=== PATIENT | male | born 1935 | race Caucasian/White ===

== ENCOUNTER 2023-11-01 21:54 | Inpatient (IN) | payer MEDICARE, OTHER ==
[~2023-11-01] VITALS: Ht 177.8 cm; Wt 63.5 kg
[2023-11-01 21:57] VITALS: O2SAT 97
[2023-11-01] MEDS ORDERED: CEFEPIME 2GM IN DEXT 5% 100ML IV ONE (22:30)
[2023-11-01] MEDS ORDERED: VANCOMYCIN 1G PREMIX 200 ML IV ONE (22:30)
[2023-11-02] VITALS (22 sets, daily range): BP systolic 64–155; BP diastolic 50–86; PULSE 70–109; RESP 0–24; TEMP 36.00288–36.55848; O2SAT 77–99
[2023-11-02] MEDS: CEFEPIME 2GM/100ML 100 ML IV NR (00:21)
[2023-11-02] MEDS: SODIUM CHLORIDE 0.9% 1,000 ML IV ONE (00:22)
[2023-11-02 00:28] LABS: BASOPHILS % 0.9 % (0.0-2.0); DIFFERENTIAL COMMENT 0; EOSINOPHILS % 0.9 % (0.0-5.0); HEMATOCRIT. 28.1 % (42.0-52.0); HEMOGLOBIN. 9.4 g/dL (14.0-18.0); LYMPHOCYTES % 15.2 % (20.0-50.0); MEAN CORPUSCULAR HEMOGLOBIN 33.8 pg (28.0-32.0); MEAN CORPUSCULAR HGB CONC 33.4 g/dL (31.0-37.0); MEAN CORPUSCULAR VOLUME 101.1 fL (80.0-94.0); MEAN PLATELET VOLUME 8.6 fl (7.4-10.4); MONOCYTES % 9.6 % (2.0-8.0); NEUTROPHILS % 73.4 % (40.0-76.0); PLATELET 229 x1000/uL (130-400); RED BLOOD CELL COUNT 2.78 mill/uL (4.7-6.1); RED CELL DISTRIBUTION WIDTH 15.1 % (11.6-14.6); WHITE BLOOD COUNT 5.4 x1000/uL (4.5-11.0)
[2023-11-02 00:36] LABS: CHLORIDE 103 mEq/L (98-107); POTASSIUM 5.4 mEq/L (3.5-5.1); SODIUM 135 mEq/L (136-145)
[2023-11-02 00:37] LABS: CARBON DIOXIDE 25 mEq/L (21-32)
[2023-11-02 00:39] LABS: INR 1.1; PROTHROMBIN TIME 12.4 sec (9.6-11.0)
[2023-11-02 00:42] LABS: CREATININE 1.6 mg/dL (0.6-1.3); GLUCOSE 155 mg/dL (70-105); UREA NITROGEN BLOOD 43 mg/dL (9-23)
[2023-11-02 00:44] LABS: ALANINE AMINOTRANSFERASE 28 IU/L (10-49); ALBUMIN 3.5 g/dL (3.2-4.8); ASPARTATE AMINOTRANSFERASE 49 IU/L (<34); BILIRUBIN DIRECT 0.3 mg/dL (<=3.0); BILIRUBIN TOTAL 0.5 mg/dL (0.1-1.0); LACTIC ACID 2.9 mmol/L (0.4-2.0); PROTEIN TOTAL 6.2 g/dL (6.0-8.3); TROPONIN I HIGH SENSITIVITY 37 ng/L (3.0-53)
[2023-11-02] MEDS: VANCOMYCIN 1G PREMIX 200 ML IV NR (01:37)
[2023-11-02 02:00] LABS: LACTIC ACID 2.8 mmol/L (0.4-2.0)
[2023-11-02 02:37] LABS: TROPONIN I HIGH SENSITIVITY 38 ng/L (3.0-53)
[2023-11-02] MEDS ORDERED: ACETAMINOPHEN 325MG TABLET PO PRN ×2 (11:45)
[2023-11-02] MEDS ORDERED: DOCUSATE SODIUM 100MG CAPSULE PO PRN (11:45)
[2023-11-02] MEDS ORDERED: ONDANSETRON HCL 4MG/2ML INJ IV PRN (11:45)
[2023-11-02] MEDS ORDERED: IPRATROPIUM/ALBUTEROL 0.5-3(2.5)MG/3ML NEB HHN PRN (11:45)
[2023-11-02] MEDS ORDERED: MAGNESIUM/ALUMINUM HYDROXIDE/SIMETHICONE 30ML UDC PO PRN (11:45)
[2023-11-02] MEDS ORDERED: GUAIFENESIN 200MG/10ML SUGAR FREE UDC PO PRN (11:45)
[2023-11-02] MEDS ORDERED: CLONIDINE 0.1MG TABLET PO PRN (11:45)
[2023-11-02] MEDS: ENOXAPARIN 30MG/0.3ML SYR SUBCUT SCH (12:46)
[2023-11-02] MEDS: SODIUM POLYSTYRENE SULFONATE 15 G/60 ML BOT PO NR (12:46)
[2023-11-02] MEDS ORDERED: CEFEPIME 2GM IN DEXT 5% 100ML IV SCH (16:30)
[2023-11-02 19:17] LABS: POTASSIUM 4.9 mEq/L (3.5-5.1)
[2023-11-02 19:19] LABS: CALCIUM 8.9 mg/dL (8.7-10.4)
[2023-11-02 19:23] LABS: CREATININE 1.6 mg/dL (0.6-1.3); IRON 48 ug/dL (65-175)
[2023-11-02 19:26] LABS: TOTAL IRON BINDING CAPACITY 311 ug/dl (250-425)
[2023-11-02 19:27] LABS: FERRITIN 198 ng/mL (22-322); FOLIC ACID (FOLATE) SERUM 13.36 ng/mL (>5.38)
[2023-11-02 19:28] LABS: VITAMIN B12 SERUM 604 pg/mL (211-911)
[2023-11-02] MEDS: AZITHROMYCIN 500MG/250ML 250 ML IV SCH (20:00)
[2023-11-02] MEDS: CEFEPIME 1GM/50ML 50 ML IV SCH (20:23)
[2023-11-02] MEDS ORDERED: NOREPINEPHRINE 8MG/250ML PMX 250 ML IV PRN (21:43)
[2023-11-02 22:30] LABS: BG BASE EXCESS -14.1 mmol/L (-2.0-3.0); BG CARBOXYHEMOGLOBIN 0.3 % (0.5-1.5); BG DEOXYHEMOGLOBIN 0.3 % (0.0-5.0); BG FRACTION INSPIRED OXYGEN 100; BG HCO3 ACT 11.3 mmol/L (21.0-28.0); BG METHEMOGLOBIN 0.3 % (0.5-1.5); BG OXYGEN SATURATION 99.7 % (94.0-98.0); BG OXYHEMOGLOBIN 99.1 % (94.0-98.0); BG PCO2 25.3 mmHg (35.0-48.0); BG PH 7.268 (7.350-7.450); BG PO2 335.9 mmHg (83.0-108.0); BG SAMPLE SITE RIGHT FEMORAL; BG TOTAL HEMOGLOBIN 10.2 g/dL (13.5-17.5); BG VENT MODE VENT - AC
[2023-11-02] MEDS: NOREPINEPHRINE 8MG/250ML PMX 250 ML IV PRN (23:14)
[2023-11-02] MEDS: PHENYLEPHRINE 100 MG in DEXT 5% WATER 240 ML IV PRN (23:15)
[2023-11-02] MEDS: LACTATED RINGERS 1,000 ML IV SCH (23:36)
[2023-11-03] VITALS (73 sets, daily range): BP systolic 55–136; BP diastolic 38–99; PULSE 44–106; RESP 17–34; TEMP 35.89176–36.28068; O2SAT 91–100
[2023-11-03 00:13] LABS: CLARITY URINE CLOUDY (CLEAR); COLOR URINE DARK YELLOW (YELLOW); GLUCOSE URINE NEGATIVE (NEGATIVE); KETONES URINE TRACE (NEGATIVE); LEUKOCYTE ESTERASE URINE 2+ (NEGATIVE); NITRITE URINE NEGATIVE (NEGATIVE); OCCULT BLOOD URINE 2+ (NEGATIVE); PROTEIN URINE 1+ (NEGATIVE); UROBILINOGEN URINE 0.2 E.U./dL (0.2-1.0)
[2023-11-03 00:16] LABS: BASOPHILS % 0.6 % (0.0-2.0); DIFFERENTIAL COMMENT 0; EOSINOPHILS % 0.2 % (0.0-5.0); HEMOGLOBIN. 10.3 g/dL (14.0-18.0); LYMPHOCYTES % 12.6 % (20.0-50.0); MEAN CORPUSCULAR HEMOGLOBIN 32.8 pg (28.0-32.0); MEAN CORPUSCULAR HGB CONC 30.3 g/dL (31.0-37.0); MEAN CORPUSCULAR VOLUME 108.3 fL (80.0-94.0); MEAN PLATELET VOLUME 8.4 fl (7.4-10.4); MONOCYTES % 4.4 % (2.0-8.0); NEUTROPHILS % 82.2 % (40.0-76.0); PLATELET 209 x1000/uL (130-400); RED BLOOD CELL COUNT 3.14 mill/uL (4.7-6.1); RED CELL DISTRIBUTION WIDTH 17.2 % (11.6-14.6)
[2023-11-03 00:29] LABS: CHLORIDE 105 mEq/L (98-107); SODIUM 137 mEq/L (136-145)
[2023-11-03 00:30] LABS: CALCIUM 8.9 mg/dL (8.7-10.4); CARBON DIOXIDE 18 mEq/L (21-32)
[2023-11-03 00:35] LABS: CREATININE 1.6 mg/dL (0.6-1.3); GLUCOSE 151 mg/dL (70-105); UREA NITROGEN BLOOD 39 mg/dL (9-23)
[2023-11-03 00:37] LABS: PHOSPHORUS 6.1 mg/dL (2.5-4.9)
[2023-11-03 00:54] LABS: HEPATITIS B SURFACE ANTIGEN NEGATIVE (Negative)
[2023-11-03 01:08] LABS: HIV 1/2 AB P24AG Negative (Negative)
[2023-11-03 01:15] LABS: HEPATITIS A AB IGM NEGATIVE (Negative); HEPATITIS B CORE AB IGM NEGATIVE (Negative)
[2023-11-03 01:16] LABS: HEPATITIS C AB NON REACTIVE (Neg) (Negative)
[2023-11-03] MEDS: NOREPINEPHRINE 32 MG in DEXT 5% WATER 218 ML IV PRN (01:20)
[2023-11-03] MEDS: VANCOMYCIN 750MG PREMIX 150 ML IV SCH (01:47)
[2023-11-03 03:23] LABS: RBC URINE 50-100 /hpf (0-2)
[2023-11-03 03:25] LABS: BACTERIA URINE 1+; SQUAMOUS EPITHELIAL CELL URINE NONE SEEN /lpf (RARE/1+)
[2023-11-03 05:19] LABS: CALCIUM 9.5 mg/dL (8.7-10.4)
[2023-11-03 05:24] LABS: CREATININE 1.8 mg/dL (0.6-1.3)
[2023-11-03 05:26] LABS: T4 FREE 0.61 ng/dL (0.89-1.76)
[2023-11-03 05:27] LABS: THYROID STIMULATING HORMONE 56.31 uIU/mL (0.55-4.78)
[2023-11-03 05:59] LABS: HEMATOCRIT. 38.1 % (42.0-52.0); HEMOGLOBIN. 11.3 g/dL (14.0-18.0); MEAN CORPUSCULAR HEMOGLOBIN 33.2 pg (28.0-32.0); MEAN CORPUSCULAR HGB CONC 29.5 g/dL (31.0-37.0); MEAN CORPUSCULAR VOLUME 112.3 fL (80.0-94.0); MEAN PLATELET VOLUME 8.6 fl (7.4-10.4); PLATELET 260 x1000/uL (130-400); RED BLOOD CELL COUNT 3.39 mill/uL (4.7-6.1); RED CELL DISTRIBUTION WIDTH 16.9 % (11.6-14.6); WHITE BLOOD COUNT 24.1 x1000/uL (4.5-11.0)
[2023-11-03] MEDS ORDERED: ACETAMINOPHEN 650MG/20.3ML UDC NG PRN (07:30)
[2023-11-03] MEDS ORDERED: ACETAMINOPHEN 650MG SUPP PR PRN (07:30)
[2023-11-03] MEDS ORDERED: LIDOCAINE HCL 1% 10 MG/ML 10ML VIAL ONE (07:42)
[2023-11-03 07:44] LABS: DIFFERENTIAL COMMENT 1
[2023-11-03 08:44] LABS: BG BASE EXCESS -14.8 mmol/L (-2.0-3.0); BG CARBOXYHEMOGLOBIN 0.3 % (0.5-1.5); BG DEOXYHEMOGLOBIN 14.4 % (0.0-5.0); BG FRACTION INSPIRED OXYGEN 70; BG HCO3 ACT 11.8 mmol/L (21.0-28.0); BG METHEMOGLOBIN 0.1 % (0.5-1.5); BG OXYGEN SATURATION 85.5 % (94.0-98.0); BG OXYHEMOGLOBIN 85.2 % (94.0-98.0); BG PCO2 30.8 mmHg (35.0-48.0); BG PH 7.203 (7.350-7.450); BG PO2 59.5 mmHg (83.0-108.0); BG SAMPLE SITE RIGHT BRACHIAL; BG TOTAL HEMOGLOBIN 12.6 g/dL (13.5-17.5); BG VENT MODE VENT - AC
[2023-11-03 09:05] LABS: LACTIC ACID 11.7 mmol/L (0.4-2.0); TROPONIN I HIGH SENSITIVITY 621 ng/L (3.0-53)
[2023-11-03] MEDS ORDERED: ACETYLCYSTEINE 200MG/ML 20% VIAL 4ML INH SCH (10:15)
[2023-11-03] MEDS ORDERED: DEXTROSE 50% WATER 50ML SYRINGE IV PRN (10:30)
[2023-11-03] MEDS: FAMOTIDINE 20MG/2ML VIAL IV SCH (10:34)
[2023-11-03] MEDS ORDERED: FUROSEMIDE 20MG/2ML VIAL IVP NR (10:45)
[2023-11-03] MEDS ORDERED: LORAZEPAM 2MG/ML INJ IV PRN (11:45)
[2023-11-03] MEDS ORDERED: ONDANSETRON HCL 4MG/2ML INJ IV PRN (11:45)
[2023-11-03] MEDS ORDERED: IPRATROPIUM/ALBUTEROL 0.5-3(2.5)MG/3ML NEB HHN SCH (12:00)
[2023-11-03] MEDS: MORPHINE SULFATE 250 MG in DEXT 5% WATER 240 ML IV PRN (12:32)
[2023-11-03] MEDS ORDERED: BLOOD SUGAR DIAGNOSTIC STRIP TEST SCH (12:50)
[2023-11-03] MEDS ORDERED: SCOPOLAMINE HYDROBROMIDE PATCH 72HR TD SCH (13:00)
[2023-11-03] MEDS ORDERED: INSULIN LISPRO 100 UNITS/ML SUBCUT SCH (13:20)
[2023-11-03 16:28] LABS: ANISOCYTOSIS 1+; PLATELET ESTIMATE NORMAL
[2023-11-04] MEDS ORDERED: VANCOMYCIN 750MG PREMIX 150 ML IV SCH (09:00)
== END 2023-11-03 13:55 | DRG 871 ==
LOC: EDBD 21:54 → ER 21:54 → EDBEDREQSVC 11-02 01:10 → 5WST 11-02 02:04 → EDBEDREQ 11-02 02:11 → 7EST 11-02 15:39 → CVICU 11-02 21:30
PROVIDERS: ADMIT Preventive Medicine Clinical Informatics; ATTEND Preventive Medicine Clinical Informatics
PROC: 5A1945Z Respiratory Ventilation, 24-96 Consecutive Hours (ICD-10-PCS; principal; 2023-11-02)
PROC: 0BH17EZ Insertion of Endotracheal Airway into Trachea, Via Natural or Artificial Opening (ICD-10-PCS; 2023-11-02)
PROC: 5A12012 Performance of Cardiac Output, Single, Manual (ICD-10-PCS; 2023-11-02)
PROC: 05HY33Z Insertion of Infusion Device into Upper Vein, Percutaneous Approach (ICD-10-PCS; 2023-11-03)
PROC: B54MZZA Ultrasonography of Right Upper Extremity Veins, Guidance (ICD-10-PCS; 2023-11-03)
DX: A41.9 Sepsis, unspecified organism (principal); I21.4 Non-ST elevation (NSTEMI) myocardial infarction; J18.9 Pneumonia, unspecified organism; J96.01 Acute respiratory failure with hypoxia; R65.21 Severe sepsis with septic shock; I50.23 Acute on chronic systolic (congestive) heart failure; E87.4 Mixed disorder of acid-base balance; G93.40 Encephalopathy, unspecified; I42.9 Cardiomyopathy, unspecified; J44.0 Chronic obstructive pulmonary disease with (acute) lower respiratory infection; R64 Cachexia; N17.9 Acute kidney failure, unspecified; N39.0 Urinary tract infection, site not specified; I13.0 Hypertensive heart and chronic kidney disease with heart failure and stage 1 through stage 4 chronic kidney disease, or unspecified chronic kidney disease; D53.9 Nutritional anemia, unspecified; E03.9 Hypothyroidism, unspecified; E87.5 Hyperkalemia; I25.10 Atherosclerotic heart disease of native coronary artery without angina pectoris; I46.9 Cardiac arrest, cause unspecified; R57.0 Cardiogenic shock; S61.411A Laceration without foreign body of right hand, initial encounter; R58 Hemorrhage, not elsewhere classified; Z66 Do not resuscitate; N18.9 Chronic kidney disease, unspecified; X58.XXXA Exposure to other specified factors, initial encounter; E11.22 Type 2 diabetes mellitus with diabetic chronic kidney disease; Z51.5 Encounter for palliative care; Z74.01 Bed confinement status; Z88.0 Allergy status to penicillin; Z95.0 Presence of cardiac pacemaker; Z95.1 Presence of aortocoronary bypass graft; Y93.9 Activity, unspecified; Y92.89 Other specified places as the place of occurrence of the external cause; Y99.8 Other external cause status; Z68.20 Body mass index [BMI] 20.0-20.9, adult
CPT/HCPCS: 31500; 36415; 36600; 71045; 76604; 80048; 80061; 80076; 81003; 82375; 82607; 82728; 82746; 82805; 82962; 83036; 83540; 83550; 83605; 83735; 83880; 84100; 84145; 84439; 84443; 84484; 85025; 86705; 86709; 87070; 87340; 87804; 92950; 93005; 93306; 93970; 93971; 94003; 99291; J0456; J0692; J1650; J3370; J3490; J7030; J7060; J7120